=== PATIENT | male | born 1980 | race Caucasian/White ===

== ENCOUNTER 2017-03-20 21:05 | Inpatient (IN) | payer OTHER ==
[~2017-03-20] VITALS: Ht 182.9 cm; Wt 106.7 kg
[2017-03-20 22:03] LABS: HEMATOCRIT 45.4 % (38.0-50.0); MCH 31.1 PG (29.0-34.0); MCHC 32.4 G/DL (30.0-36.0); MEAN PLAT.VOLUME 11.3 uM^3 (9.0-12.4); PLATELET COUNT 174 K/uL (156-360); RBC DIS.WIDTH-CV 12.9 % (11.8-14.6); RBC DIS.WIDTH-SD 45.9 % (39-53); RED BLOOD COUNT 4.73 M/uL (4.00-5.50); WHITE BLOOD COUNT 17.1 K/uL (4.1-10.2)
[2017-03-20 22:31] LABS: ANION GAP 10 MEQ/L (2-14); CHLORIDE 99 MEQ/L (99-109); POTASSIUM 4.1 MEQ/L (3.7-5.4); SAMPLE HEMOLYSIS CHECK 0; SAMPLE ICTERIC CHECK 0; SAMPLE LIPEMIA CHECK 0; SODIUM 137 MEQ/L (136-147)
[2017-03-20 22:37] LABS: GFR ESTIMATE (CALCULATED) > 59 mL/min/; GLUCOSE 100 mg/dL (70-99); UREA NITROGEN (BUN) 13 mg/dL (9-23)
[2017-03-20 22:39] LABS: TROP-I INTERPRETATION NEGATIVE; TROPONIN-I < 0.01 ng/mL (0.0-0.30)
[2017-03-21 00:25] LABS: ALKALINE PHOSPHATASE 98 IU/L (3-129); DIRECT BILIRUBIN 0.1 mg/dL (0.0-0.3); LIPASE 8 U/L (1.0-51.0); TOTAL BILIRUBIN 0.7 MG/DL (0.0-1.0)
[2017-03-21 00:53] LABS: CK-MB 6.4 ng/mL (0.0-4.9)
[2017-03-21 01:05] LABS: CREATINE KINASE 250 IU/L (1-294); TOTAL CK 250 IU/L (1-294)
[2017-03-21 04:29] LABS: ADD MEDTOX COMMENT Y; AMPHETAMINE NEGATIVE (500 ng/mL); BARBITURATES NEGATIVE (200 ng/mL); BENZODIAZEPINES NEGATIVE (150 ng/mL); COCAINE NEGATIVE (150 ng/mL); INTERNAL CONTROLS VALID? YES; METHADONE NEGATIVE (200 ng/mL); METHAMPHETAMINE NEGATIVE (500 ng/mL); OPIATES (MORPHINE) PRESUMPTIVE POSITIVE (100 ng/mL); OXYCODONE NEGATIVE (100 ng/mL); PHENCYCLIDINE NEGATIVE (25 ng/mL); PROPOXYPHENE NEGATIVE (300 ng/mL); THC CANNABINOIDS NEGATIVE (50 ng/mL); TRICYCLIC ANTIDEPRESSANTS NEGATIVE (300 ng/mL)
[2017-03-21 06:10] VITALS: BP 167/99
[2017-03-21 07:36] LABS: Estimated Average Glucose 123 mg/dL (70-123); HEMOGLOBIN A1c (GLYCOHEMOGLOB) 5.9 % HGB (Below 5.7)
[2017-03-21 08:00] VITALS: BP 151/93
[2017-03-21 09:27] LABS: TREPONEMA ANTIBODY NEGATIVE (NEGATIVE)
[2017-03-21 09:31] LABS: HEMATOCRIT 40.4 % (38.0-50.0); MCH 30.8 PG (29.0-34.0); MCHC 31.7 G/DL (30.0-36.0); MCV 97.3 FL (86-99); MEAN PLAT.VOLUME 10.2 uM^3 (9.0-12.4); PLATELET COUNT 202 K/uL (156-360); RBC DIS.WIDTH-SD 46.2 % (39-53); RED BLOOD COUNT 4.15 M/uL (4.00-5.50); WHITE BLOOD COUNT 11.6 K/uL (4.1-10.2)
[2017-03-21 10:25] LABS: C-REACTIVE PROTEIN 33.6 MG/L (0-10)
[2017-03-21 11:09] LABS: ANION GAP 6 MEQ/L (2-14); CHLORIDE 104 MEQ/L (99-109); GFR ESTIMATE (CALCULATED) > 59 mL/min/; GLUCOSE 82 mg/dL (70-99); POTASSIUM 4.3 MEQ/L (3.7-5.4); SAMPLE HEMOLYSIS CHECK 0; SAMPLE ICTERIC CHECK 0; SAMPLE LIPEMIA CHECK 0; SODIUM 139 MEQ/L (136-147); UREA NITROGEN (BUN) 9 mg/dL (9-23)
[2017-03-21 11:21] VITALS: BP 136/89
[2017-03-21 15:57] VITALS: BP 134/90
[2017-03-21 20:22] VITALS: BP 168/75
[2017-03-22] VITALS: BP 142/96
[2017-03-22 05:15] VITALS: BP 154/92
[2017-03-22 05:20] LABS: HEMATOCRIT 39.5 % (38.0-50.0); MCH 31.9 PG (29.0-34.0); MCHC 33.2 G/DL (30.0-36.0); MCV 96.1 FL (86-99); MEAN PLAT.VOLUME 10.8 uM^3 (9.0-12.4); PLATELET COUNT 214 K/uL (156-360); RBC DIS.WIDTH-SD 45.9 % (39-53); RED BLOOD COUNT 4.11 M/uL (4.00-5.50); WHITE BLOOD COUNT 12.2 K/uL (4.1-10.2)
[2017-03-22 05:55] LABS: ANION GAP 8 MEQ/L (2-14); CHLORIDE 102 MEQ/L (99-109); GFR ESTIMATE (CALCULATED) > 59 mL/min/; POTASSIUM 3.5 MEQ/L (3.7-5.4); SAMPLE HEMOLYSIS CHECK 0; SAMPLE ICTERIC CHECK 0; SAMPLE LIPEMIA CHECK 0; SODIUM 138 MEQ/L (136-147); UREA NITROGEN (BUN) 9 mg/dL (9-23)
[2017-03-22 06:41] LABS: GLUCOSE 107 mg/dL (70-99)
[2017-03-22 08:22] VITALS: BP 139/85
[2017-03-22 10:16] LABS: HBSG INDEX 0.21
[2017-03-22 10:17] LABS: HPCA INDEX 0.15
[2017-03-22 12:37] VITALS: BP 128/84
[2017-03-22 17:59] VITALS: BP 143/81
[2017-03-22 20:27] VITALS: BP 146/100
[2017-03-23 01:01] VITALS: BP 140/99
[2017-03-23 05:53] VITALS: BP 144/89
[2017-03-23 05:54] LABS: HEMATOCRIT 41.2 % (38.0-50.0); MCH 31.8 PG (29.0-34.0); MCV 96.3 FL (86-99); MEAN PLAT.VOLUME 10.7 uM^3 (9.0-12.4); PLATELET COUNT 206 K/uL (156-360); RBC DIS.WIDTH-SD 46.4 % (39-53); RED BLOOD COUNT 4.28 M/uL (4.00-5.50); WHITE BLOOD COUNT 11.2 K/uL (4.1-10.2)
[2017-03-23 06:12] LABS: ANION GAP 9 MEQ/L (2-14); CHLORIDE 102 MEQ/L (99-109); GFR ESTIMATE (CALCULATED) > 59 mL/min/; GLUCOSE 82 mg/dL (70-99); SAMPLE HEMOLYSIS CHECK 0; SAMPLE ICTERIC CHECK 0; SAMPLE LIPEMIA CHECK 0; SODIUM 141 MEQ/L (136-147); UREA NITROGEN (BUN) 8 mg/dL (9-23)
[2017-03-23 09:00] VITALS: BP 140/91
[2017-03-23 12:00] VITALS: BP 153/62
[2017-03-23 12:13] LABS: APPEARANCE CLEAR/COLORLESS; CSF EOSINOPHILS 0 % (0-25); MONO RAW COUNT 1; MONONUCLEAR WBC'S 50 % (50-90); POLY RAW COUNT 1; POLYNUCLEAR WBC'S 50 % (0-3); RED CELL AREA COUNTED 18; RED CELL COUNT 0 /MM^3 (0-1); RED CELL DILUTION 1; WBC AREA COUNTED 18; WBC DILUTION 1; WHITE CELL COUNT 2 /MM^3 (0-5); WHITE CELL RAW COUNT 3
[2017-03-23 15:00] VITALS: BP 131/91
[2017-03-23 21:42] VITALS: BP 142/82
[2017-03-24 00:18] VITALS: BP 131/90
[2017-03-24 04:59] VITALS: BP 138/96
[2017-03-24 05:18] LABS: HEMATOCRIT 42.7 % (38.0-50.0); MCH 32.7 PG (29.0-34.0); MCHC 34.2 G/DL (30.0-36.0); MCV 95.7 FL (86-99); MEAN PLAT.VOLUME 10.7 uM^3 (9.0-12.4); PLATELET COUNT 219 K/uL (156-360); RBC DIS.WIDTH-CV 12.6 % (11.8-14.6); RBC DIS.WIDTH-SD 44.5 % (39-53); RED BLOOD COUNT 4.46 M/uL (4.00-5.50); WHITE BLOOD COUNT 13.6 K/uL (4.1-10.2)
[2017-03-24 19:30] VITALS: BP 133/78
[2017-03-24 23:00] VITALS: BP 136/98
[2017-03-25 04:49] VITALS: BP 137/94
[2017-03-25 05:35] LABS: HEMATOCRIT 41.7 % (38.0-50.0); MCH 31.9 PG (29.0-34.0); MCHC 33.1 G/DL (30.0-36.0); MCV 96.3 FL (86-99); MEAN PLAT.VOLUME 10.9 uM^3 (9.0-12.4); PLATELET COUNT 198 K/uL (156-360); RBC DIS.WIDTH-CV 12.8 % (11.8-14.6); RBC DIS.WIDTH-SD 45.2 % (39-53); RED BLOOD COUNT 4.33 M/uL (4.00-5.50); WHITE BLOOD COUNT 14.1 K/uL (4.1-10.2)
[2017-03-25 08:22] VITALS: BP 149/97
[2017-03-25 16:00] VITALS: BP 120/83
[2017-03-26 00:06] VITALS: BP 129/83
[2017-03-26 02:54] VITALS: BP 138/85
[2017-03-26 05:46] LABS: HEMATOCRIT 43.5 % (38.0-50.0); MCHC 32.9 G/DL (30.0-36.0); MCV 97.3 FL (86-99); MEAN PLAT.VOLUME 10.7 uM^3 (9.0-12.4); PLATELET COUNT 184 K/uL (156-360); RBC DIS.WIDTH-CV 13.1 % (11.8-14.6); RBC DIS.WIDTH-SD 46.8 % (39-53); RED BLOOD COUNT 4.47 M/uL (4.00-5.50); WHITE BLOOD COUNT 13.3 K/uL (4.1-10.2)
[2017-03-26 07:20] VITALS: BP 137/87
[2017-03-26] MEDS ORDERED: HYDROCODON-ACE1 EAC7 PO (08:28)
[2017-03-26] MEDS ORDERED: CYCLOBENZAPRINE10 MG PO (08:28)
[2017-03-26] MEDS ORDERED: NICOTINE PATCH1 EAC2 TD (08:49)
[2017-03-26 11:28] VITALS: BP 140/84
[2017-03-26] MEDS ORDERED: ERGOCALCIF50000 UNIT PO ×2 (11:48→16:11)
[2017-03-26 15:04] VITALS: BP 137/83
[2017-03-26] MEDS ORDERED: SENNA-DOCUSATE1 EAC1 PO (16:04)
[2017-03-26] MEDS ORDERED: DIAZEPAM10 MG PO (16:06)
[2017-03-26] MEDS ORDERED: ACETAMINOPHEN325 M1 PO (16:07)
[2017-03-26] MEDS ORDERED: B-121000 MC2 PO (16:10)
[2017-03-26 20:07] LABS: IgG Index, CSF 0.47 index (<0.66); Synthesis Rate IgG, CSF -2.4 mg/24 h (-9.9-3.3)
== END 2017-03-26 15:20 | DRG 519 ==
LOC: EME 21:05 → EDOF 03-21 03:57 → 4EAST 03-21 03:57 → ENRESERV 03-21 03:59 → 4EAST 03-21 05:56
PROVIDERS: Hospitalist; Internal Medicine Infectious Disease; Physician Assistant; Psychiatry & Neurology Clinical Neurophysiology
PROC: 009U3ZX Drainage of Spinal Canal, Percutaneous Approach, Diagnostic (ICD-10-PCS; principal; 2017-03-23)
PROC: 00NW0ZZ Release Cervical Spinal Cord, Open Approach (ICD-10-PCS; 2017-03-23)
DX: M50.01 Cervical disc disorder with myelopathy, high cervical region (principal); M48.02 Spinal stenosis, cervical region; R65.10 Systemic inflammatory response syndrome (SIRS) of non-infectious origin without acute organ dysfunction; F95.2 Tourette's disorder; E55.9 Vitamin D deficiency, unspecified; J98.11 Atelectasis; E87.6 Hypokalemia; F40.240 Claustrophobia; B95.61 Methicillin susceptible Staphylococcus aureus infection as the cause of diseases classified elsewhere; S80.922A Unspecified superficial injury of left lower leg, initial encounter; R29.6 Repeated falls; F17.210 Nicotine dependence, cigarettes, uncomplicated; Z91.81 History of falling; Z82.0 Family history of epilepsy and other diseases of the nervous system
CPT/HCPCS: 62270; 70450; 70551; 71010; 71020; 72020; 72141; 72146; 72148; 74176; 76000; 77003; 80048; 80076; 82040 90; 82042 90; 82175 90; 82300 90; 82306; 82550; 82553; 82607; 82746; 82784 90; 82945; 83036; 83655 90; 83690; 83825 90; 83873 90; 83916 90; 84157; 84443; 84484; 84999; 85027; 85651; 86140; 86617 90; 86618 90; 86780; 86803; 87040; 87070; 87075; 87077; 87147; 87186; 87205; 87340; 89051; 93005; 94799; 97530 GP; 99281; 99285; J0131; J0690; J0696; J1170; J1644; J2060; J2250; J2930; J3010; J3370; J3480; J7030; J7050

== ENCOUNTER 2017-03-26 15:07 | Inpatient (IN) | payer OTHER ==
[~2017-03-26] VITALS: Ht 180.3 cm; Wt 106.3 kg
[~2017-03-26 15:07] MED LIST: CYCLOBENZAPRINE10 MG PO; ERGOCALCIF50000 UNIT PO; HYDROCODON-ACE1 EAC7 PO; NICOTINE PATCH1 EAC2 TD
[2017-03-26 16:00] VITALS: BP 156/95
[2017-03-26] MEDS ORDERED: SENNA-DOCUSATE1 EAC1 PO (16:04)
[2017-03-26] MEDS ORDERED: DIAZEPAM10 MG PO (16:06)
[2017-03-26] MEDS ORDERED: ACETAMINOPHEN325 M1 PO (16:07)
[2017-03-26] MEDS ORDERED: B-121000 MC2 PO (16:10)
[2017-03-26] MEDS ORDERED: ERGOCALCIF50000 UNIT PO (16:11)
[2017-03-26 23:50] VITALS: BP 143/90
[2017-03-27 05:01] VITALS: BP 146/92
[2017-03-27 15:27] VITALS: BP 117/74
[2017-03-28 05:12] VITALS: BP 144/83
[2017-03-28 05:49] LABS: EOSINOPHIL (%) 1.5 % (0-5); EOSINOPHIL COUNT 0.2 K/uL (0-0.3); IMMATURE GRANULOCYTE (%) 0.7 % (0.0-0.7); IMMATURE GRANULOCYTE COUNT 0.1 K/uL; INSTRUMENT ABS NEUTROPHIL CT 8.4 K/uL; LYMPHOCYTE COUNT 2.1 K/uL (1.0-2.8); MCH 32.4 PG (29.0-34.0); MCHC 33.3 G/DL (30.0-36.0); MCV 97.5 FL (86-99); MEAN PLAT.VOLUME 10.7 uM^3 (9.0-12.4); MONOCYTE (%) 10.1 % (3-12); MONOCYTE COUNT 1.2 K/uL (0-0.8); NEUTROPHIL (%) 69.6 % (45-76); NEUTROPHIL COUNT 8.4 K/uL (1.8-6.4); PLATELET COUNT 204 K/uL (156-360); RBC DIS.WIDTH-CV 12.9 % (11.8-14.6); RBC DIS.WIDTH-SD 46.4 % (39-53); RED BLOOD COUNT 4.72 M/uL (4.00-5.50); WHITE BLOOD COUNT 12.1 K/uL (4.1-10.2)
[2017-03-28 15:47] VITALS: BP 131/73
[2017-03-29 05:40] VITALS: BP 104/67
[2017-03-29 15:31] VITALS: BP 116/74
[2017-03-30 04:50] VITALS: BP 135/69
[2017-03-30 15:39] VITALS: BP 113/67
[2017-03-31 06:57] LABS: BASOPHIL COUNT 0.1 K/uL (0-0.1); EOSINOPHIL (%) 2.2 % (0-5); EOSINOPHIL COUNT 0.2 K/uL (0-0.3); HEMATOCRIT 43.9 % (38.0-50.0); IMMATURE GRANULOCYTE (%) 0.5 % (0.0-0.7); IMMATURE GRANULOCYTE COUNT 0.1 K/uL; INSTRUMENT ABS NEUTROPHIL CT 6.4 K/uL; LYMPHOCYTE COUNT 2.2 K/uL (1.0-2.8); MCHC 32.6 G/DL (30.0-36.0); MCV 98.2 FL (86-99); MEAN PLAT.VOLUME 10.9 uM^3 (9.0-12.4); MONOCYTE (%) 9.8 % (3-12); NEUTROPHIL (%) 65.2 % (45-76); NEUTROPHIL COUNT 6.4 K/uL (1.8-6.4); PLATELET COUNT 194 K/uL (156-360); RBC DIS.WIDTH-SD 46.8 % (39-53); RED BLOOD COUNT 4.47 M/uL (4.00-5.50); WHITE BLOOD COUNT 9.9 K/uL (4.1-10.2)
[2017-03-31 15:30] VITALS: BP 117/73
[2017-04-01 06:01] VITALS: BP 120/73
[2017-04-01 14:58] VITALS: BP 120/69
[2017-04-02 04:25] VITALS: BP 119/67
[2017-04-02 15:05] VITALS: BP 111/69
[2017-04-03 05:26] VITALS: BP 118/83
[2017-04-03 15:33] VITALS: BP 114/69
[2017-04-04 05:58] VITALS: BP 121/77
[2017-04-04 15:12] VITALS: BP 121/74
[2017-04-04 19:55] VITALS: BP 136/74
[2017-04-05 00:13] VITALS: BP 120/67
[2017-04-05 04:53] LABS: HEMATOCRIT 41.3 % (38.0-50.0); MCH 30.7 PG (29.0-34.0); MCHC 32.4 G/DL (30.0-36.0); MCV 94.7 FL (86-99); MEAN PLAT.VOLUME 10.7 uM^3 (9.0-12.4); PLATELET COUNT 188 K/uL (156-360); RBC DIS.WIDTH-CV 12.4 % (11.8-14.6); RBC DIS.WIDTH-SD 43.3 % (39-53); RED BLOOD COUNT 4.36 M/uL (4.00-5.50); WHITE BLOOD COUNT 8.4 K/uL (4.1-10.2)
[2017-04-05 05:00] VITALS: BP 119/74
[2017-04-05 05:09] LABS: CHLORIDE 103 mEq/L (99-109); POTASSIUM 4.2 mEq/L (3.7-5.4); SODIUM 138 mEq/L (136-147)
[2017-04-05 05:11] LABS: GLUCOSE 92 mg/dL (70-99)
[2017-04-05 05:12] LABS: ANION GAP 7 MEQ/L (2-14)
[2017-04-05 05:13] LABS: TOTAL BILIRUBIN 0.4 mg/dL (0.0-1.0)
[2017-04-05 05:15] LABS: ALKALINE PHOSPHATASE 90 IU/L (3-129); GFR ESTIMATE (CALCULATED) > 59 mL/min/
[2017-04-05 05:16] LABS: UREA NITROGEN (BUN) 12 mg/dL (9-23)
[2017-04-05 07:40] VITALS: BP 132/82
[2017-04-05 15:29] VITALS: BP 117/74
[2017-04-05] MEDS ORDERED: HYDROCODON-ACE1 EAC7 PO (15:43)
[2017-04-05] MEDS ORDERED: CYCLOBENZAPRINE10 MG PO (15:43)
[2017-04-05] MEDS ORDERED: NICOTINE PATCH1 EAC2 TD (15:43)
[2017-04-06 05:29] VITALS: BP 102/67
[2017-04-06 07:20] VITALS: BP 131/82
== END 2017-04-06 14:15 | DRG 946 ==
LOC: ENRESERV 15:07 → 3WEST 15:07 → ENPENDDIS 04-06 → 3WEST 04-06 14:15
PROVIDERS: Physical Medicine & Rehabilitation Pain Medicine; Psychiatry & Neurology Neurology
PROC: F07M0ZZ Range of Motion and Joint Mobility Treatment of Musculoskeletal System - Whole Body (ICD-10-PCS; principal; 2017-03-26)
DX: R53.1 Weakness (principal); R27.0 Ataxia, unspecified; M54.2 Cervicalgia; D64.9 Anemia, unspecified; F95.2 Tourette's disorder; I10 Essential (primary) hypertension; D72.829 Elevated white blood cell count, unspecified; E53.8 Deficiency of other specified B group vitamins; E55.9 Vitamin D deficiency, unspecified; R20.0 Anesthesia of skin; R51 Headache; F17.210 Nicotine dependence, cigarettes, uncomplicated; Z68.32 Body mass index [BMI] 32.0-32.9, adult; Z82.0 Family history of epilepsy and other diseases of the nervous system
CPT/HCPCS: 80053; 85025; 85027; 97110 GO; 97112 GP; 97530 GP

== ENCOUNTER 2017-08-04 15:56 | Inpatient (IN) | payer OTHER ==
[~2017-08-04] VITALS: Ht 182.9 cm; Wt 93.3 kg
[~2017-08-04 15:56] MED LIST changes: +ACETAMINOPHEN325 M1 PO; +B-121000 MC2 PO; +DIAZEPAM10 MG PO; +SENNA-DOCUSATE1 EAC1 PO
[2017-08-04 16:57] LABS: BASOPHIL (%) 0.3 % (0-1); BASOPHIL COUNT 0.1 K/uL (0-0.1); EOSINOPHIL (%) 0.1 % (0-5); HEMATOCRIT 49.7 % (38.0-50.0); HEMOGLOBIN 17.3 G/DL (12.5-16.6); LYMPHOCYTE (%) 7.5 % (15-42); LYMPHOCYTE COUNT 2.6 K/uL (1.0-2.8); MCH 31.1 PG (29.0-34.0); MCHC 34.8 G/DL (30.0-36.0); MCV 89.2 FL (86-99); MONOCYTE (%) 3.9 % (3-12); MONOCYTE COUNT 1.4 K/uL (0-0.8); NEUTROPHIL (%) 87.2 % (45-76); NEUTROPHIL COUNT 30.1 K/uL (1.8-6.4); PLATELET COUNT 358 K/uL (156-360); RBC DIS.WIDTH-CV 12.1 % (11.8-14.6); RBC DIS.WIDTH-SD 39.7 % (39-53); RED BLOOD COUNT 5.57 M/uL (4.00-5.50)
[2017-08-04 16:59] LABS: WHITE BLOOD COUNT 34.5 K/uL (4.1-10.2)
[2017-08-04 17:08] LABS: ALBUMIN 4.6 G/DL (3.2-4.8); DIRECT BILIRUBIN 0.1 mg/dL (0.0-0.3); TOTAL BILIRUBIN 0.7 MG/DL (0.0-1.0)
[2017-08-04 17:22] LABS: ALKALINE PHOSPHATASE 118 IU/L (3-129); ALT (GPT) 19 IU/L (3-49); AST (GOT) 19 IU/L (2-34); LIPASE 506 U/L (1.0-51.0); SERUM ETHYL ALCOHOL < 10 mg/dL; TOTAL PROTEIN 7.8 G/DL (6.4-8.3)
[2017-08-04 18:00] LABS: HEMATOCRIT 46.8 % (38.0-50.0); HEMOGLOBIN 16.5 G/DL (12.5-16.6); MCH 31.4 PG (29.0-34.0); MCHC 35.3 G/DL (30.0-36.0); MCV 89.1 FL (86-99); PLATELET COUNT 305 K/uL (156-360); RBC DIS.WIDTH-CV 12.1 % (11.8-14.6); RBC DIS.WIDTH-SD 39.8 % (39-53); RED BLOOD COUNT 5.25 M/uL (4.00-5.50); WHITE BLOOD COUNT 28.9 K/uL (4.1-10.2)
[2017-08-04 18:21] LABS: TROP-I INTERPRETATION NEGATIVE; TROPONIN-I 0.19 ng/mL (0.0-0.30)
[2017-08-04] MEDS ORDERED: WELLBUTRIN SR150 MG PO (20:23)
[2017-08-04] MEDS ORDERED: FLUPHENAZINE H2.5 MG PO (20:23)
[2017-08-04] MEDS ORDERED: METOPROLOL SUCC50 MG PO (20:23)
[2017-08-04] MEDS ORDERED: SUBOXONE 8 MG-1 EAC2 SL (20:23)
[2017-08-04 21:15] LABS: APPEARANCE CLEAR ((CLEAR)); BILIRUBIN NEGATIVE; BLOOD LARGE; COLOR STRAW ((YELLOW)); GLUCOSE (STRIP) NEGATIVE; KETONES 20; LEUKOCYTES NEGATIVE; NITRITE NEGATIVE; PROTEIN (STRIP) NEGATIVE; UROBILINOGEN 0.2 MG/DL (0.2-1.0)
[2017-08-04 21:21] LABS: BACTERIA NONE SEEN /HPF; EPITHELIAL CELLS NONE SEEN /HPF; MUCUS TRACE /LPF; RED BLOOD CELLS 30-40 /HPF (0-5); UCUL ADDED? NO; WHITE BLOOD CELLS 0-5 /HPF (0-5)
[2017-08-04 21:24] LABS: AMPHETAMINE NEGATIVE (500 ng/mL); BARBITURATES NEGATIVE (200 ng/mL); BENZODIAZEPINES PRESUMPTIVE POSITIVE (150 ng/mL); BUPRENORPHINE PRESUMPTIVE POSITIVE (10 ng/mL); COCAINE NEGATIVE (150 ng/mL); METHADONE NEGATIVE (200 ng/mL); METHAMPHETAMINE NEGATIVE (500 ng/mL); OPIATES (MORPHINE) NEGATIVE (100 ng/mL); OXYCODONE NEGATIVE (100 ng/mL); PHENCYCLIDINE NEGATIVE (25 ng/mL); PROPOXYPHENE NEGATIVE (300 ng/mL); THC CANNABINOIDS NEGATIVE (50 ng/mL); TRICYCLIC ANTIDEPRESSANTS NEGATIVE (300 ng/mL)
[2017-08-04 21:42] LABS: BASE EXCESS -2.4 mEq/L (-3 to +3); BICARBONATE 19.7 mEq/L (22-26); CARBOXY HGB 2.3 % (0-5); METHEMOGLOBIN 1.4 % (0-1.5); PCO2 27 mm Hg (35-45); PO2 67 mm Hg (80-100); pH 7.47 (7.35-7.45)
[2017-08-04 21:43] LABS: COMMENTS - BLOOD GASES C+A+; DEVICE ROOM AIR; SITE RB
[2017-08-04 22:04] LABS: CHLORIDE 109 MEQ/L (99-109); SODIUM 141 MEQ/L (136-147)
[2017-08-04 22:06] LABS: BENZODIAZEPINES, URINE SCREEN Negative (200 ng/mL)
[2017-08-04 22:10] LABS: CREATININE 0.9 MG/DL (0.6-1.3); GFR ESTIMATE (CALCULATED) > 59 mL/min/ (58.99-99999); GLUCOSE 99 mg/dL (70-99); UREA NITROGEN (BUN) 15 mg/dL (9-23)
[2017-08-04 23:54] LABS: INTER. NORMALIZED RATIO 1.2
[2017-08-04 23:56] LABS: PTT 32.4 SEC (25-37)
[2017-08-05] VITALS (21 sets, daily range): BP systolic 121–152; BP diastolic 79–104
[2017-08-05 00:08] LABS: TROP-I INTERPRETATION POSITIVE
[2017-08-05 00:11] LABS: TROPONIN-I 0.78 ng/mL (0.0-0.30)
[2017-08-05 00:16] LABS: ALBUMIN 3.9 G/DL (3.2-4.8); ALKALINE PHOSPHATASE 96 IU/L (3-129); ALT (GPT) 20 IU/L (3-49); DIRECT BILIRUBIN 0.2 mg/dL (0.0-0.3); MAGNESIUM 1.5 mg/dl (1.3-2.7); PHOSPHORUS 2.1 mg/dL (2.5-4.9); TOTAL BILIRUBIN 0.8 MG/DL (0.0-1.0); TOTAL PROTEIN 6.8 G/DL (6.4-8.3)
[2017-08-05 00:19] LABS: AST (GOT) 28 IU/L (2-34)
[2017-08-05 12:59] LABS: CREATININE 0.7 MG/DL (0.6-1.3); GFR ESTIMATE (CALCULATED) > 59 mL/min/ (58.99-99999); UREA NITROGEN (BUN) 12 mg/dL (9-23)
[2017-08-05 15:38] LABS: BASE EXCESS -2.7 mEq/L (-3 to +3); BICARBONATE 20.8 mEq/L (22-26); CARBOXY HGB 2.6 % (0-5); METHEMOGLOBIN 1.6 % (0-1.5); PCO2 32 mm Hg (35-45); PO2 67 mm Hg (80-100); pH 7.42 (7.35-7.45)
[2017-08-05 15:39] LABS: COMMENTS - BLOOD GASES NA C+; DEVICE NC; O2 FLOW 2 L/MIN; SITE RR; TOTAL RESP RATE 14 resp/min
[2017-08-06] VITALS (16 sets, daily range): BP systolic 121–157; BP diastolic 68–110
[2017-08-06 07:37] LABS: BASOPHIL (%) 0.3 % (0-1); EOSINOPHIL (%) 0.1 % (0-5); HEMATOCRIT 37.9 % (38.0-50.0); IMMATURE GRANULOCYTE (%) 0.6 % (0.0-0.7); LYMPHOCYTE COUNT 1.8 K/uL (1.0-2.8); MCH 30.5 PG (29.0-34.0); MCHC 34.3 G/DL (30.0-36.0); MONOCYTE (%) 7.9 % (3-12); MONOCYTE COUNT 1.2 K/uL (0-0.8); NEUTROPHIL (%) 79.1 % (45-76); NEUTROPHIL COUNT 11.7 K/uL (1.8-6.4); RBC DIS.WIDTH-CV 12.2 % (11.8-14.6); RED BLOOD COUNT 4.26 M/uL (4.00-5.50); WHITE BLOOD COUNT 14.8 K/uL (4.1-10.2)
[2017-08-06 07:44] LABS: TROP-I INTERPRETATION NEGATIVE
[2017-08-06 07:54] LABS: PLAT.SUFFICIENCY ADEQUATE
[2017-08-06 07:58] LABS: PLATELET COUNT 178 K/uL (156-360)
[2017-08-06 08:04] LABS: CHLORIDE 107 MEQ/L (99-109); CREATININE 0.7 MG/DL (0.6-1.3); GFR ESTIMATE (CALCULATED) > 59 mL/min/ (58.99-99999); GLUCOSE 80 mg/dL (70-99); MAGNESIUM 1.8 mg/dl (1.3-2.7); PHOSPHORUS 2.4 mg/dL (2.5-4.9); POTASSIUM 3.6 MEQ/L (3.7-5.4); SODIUM 138 MEQ/L (136-147); TOTAL CK 694 IU/L (1-294); UREA NITROGEN (BUN) 9 mg/dL (9-23)
[2017-08-06 08:05] LABS: CREATINE KINASE 694 IU/L (1-294)
[2017-08-06 08:09] LABS: CK-MB 3.9 ng/mL (0.0-4.9); CKMB RELATIVE INDEX 0.6 (0.0-3.9)
[2017-08-06 08:55] LABS: LIPASE 115 U/L (1.0-51.0)
[2017-08-07] VITALS (11 sets, daily range): BP systolic 124–163; BP diastolic 84–112
[2017-08-07 12:45] LABS: BASOPHIL (%) 0.3 % (0-1); EOSINOPHIL (%) 0.2 % (0-5); HEMATOCRIT 38.9 % (38.0-50.0); IMMATURE GRANULOCYTE (%) 0.9 % (0.0-0.7); LYMPHOCYTE (%) 11.1 % (15-42); LYMPHOCYTE COUNT 1.2 K/uL (1.0-2.8); MCHC 33.4 G/DL (30.0-36.0); MCV 89.8 FL (86-99); MONOCYTE (%) 8.6 % (3-12); NEUTROPHIL (%) 78.9 % (45-76); NEUTROPHIL COUNT 8.9 K/uL (1.8-6.4); PLATELET COUNT 174 K/uL (156-360); RBC DIS.WIDTH-CV 12.2 % (11.8-14.6); RBC DIS.WIDTH-SD 40.2 % (39-53); RED BLOOD COUNT 4.33 M/uL (4.00-5.50); WHITE BLOOD COUNT 11.2 K/uL (4.1-10.2)
[2017-08-07 13:21] LABS: CHLORIDE 105 MEQ/L (99-109); CREATININE 0.7 MG/DL (0.6-1.3); GFR ESTIMATE (CALCULATED) > 59 mL/min/ (58.99-99999); GLUCOSE 111 mg/dL (70-99); POTASSIUM 3.6 MEQ/L (3.7-5.4); SODIUM 135 MEQ/L (136-147); UREA NITROGEN (BUN) 4 mg/dL (9-23)
[2017-08-07] MEDS ORDERED: AUGMENTIN875 MG PO (15:21)
[2017-08-08] VITALS (9 sets, daily range): BP systolic 0–165; BP diastolic 0–108
[2017-08-08] MEDS ORDERED: TOPROL XL25 MG PO (11:14)
[2017-08-08] MEDS ORDERED: LISINOPRIL10 MG PO (11:14)
== END 2017-08-08 14:36 | DRG 82 ==
LOC: EME 15:56 → EDOF 22:51 → 4WEST 22:51 → ENRESERV 23:11 → CANRESERV 23:11 → EDOF 08-05 02:31 → ENRESERV 08-05 02:33 → 4WEST 08-05 03:31 → ENRESERV 08-06 12:08 → CANRESERV 08-06 23:48 → ENRESERV 08-07 09:17 → 4WEST 08-08 14:36
PROVIDERS: Emergency Medicine; Hospitalist; Internal Medicine; Internal Medicine Critical Care Medicine; Obstetrics & Gynecology
DX: S06.6X9A Traumatic subarachnoid hemorrhage with loss of consciousness of unspecified duration, initial encounter (principal); J69.0 Pneumonitis due to inhalation of food and vomit; I10 Essential (primary) hypertension; F11.23 Opioid dependence with withdrawal; F95.2 Tourette's disorder; F10.239 Alcohol dependence with withdrawal, unspecified; G95.9 Disease of spinal cord, unspecified; E87.2 Acidosis; F17.200 Nicotine dependence, unspecified, uncomplicated; R32 Unspecified urinary incontinence; Z87.442 Personal history of urinary calculi; Z82.0 Family history of epilepsy and other diseases of the nervous system
CPT/HCPCS: 36600; 70450; 70496; 71045; 71275; 74177; 80048; 80076; 80202; 81003; 82140; 82550; 82553; 82565; 82803; 82948; 83605; 83690; 83735; 83785 90; 84100; 84484; 84520; 84999; 85025; 85027; 85610; 85730; 87040; 87641; 93005; 94799; 95819; 97530 GO; 99281; 99285; G0480; J0295; J1200; J1630; J2060; J2250; J2270; J2543; J3010; J3370; J3475; J7030; J7040; J7050; J7120; S0028

== ENCOUNTER 2017-08-08 14:57 | Inpatient (IN) | payer OTHER ==
[~2017-08-08] VITALS: Ht 180.3 cm; Wt 94.4 kg
[~2017-08-08 14:57] MED LIST changes: +AUGMENTIN875 MG PO; +FLUPHENAZINE H2.5 MG PO; +LISINOPRIL10 MG PO; +METOPROLOL SUCC50 MG PO; +SUBOXONE 8 MG-1 EAC2 SL; +TOPROL XL25 MG PO; +WELLBUTRIN SR150 MG PO
[2017-08-08 15:36] VITALS: BP 145/85
[2017-08-08 15:47] VITALS: BP 145/85
[2017-08-08 23:57] VITALS: BP 160/98
[2017-08-09 05:06] VITALS: BP 139/92
[2017-08-09 05:55] LABS: HEMOGLOBIN 13.1 G/DL (12.5-16.6); MCH 30.1 PG (29.0-34.0); MCHC 33.6 G/DL (30.0-36.0); MCV 89.7 FL (86-99); PLATELET COUNT 184 K/uL (156-360); RBC DIS.WIDTH-SD 39.5 % (39-53); RED BLOOD COUNT 4.35 M/uL (4.00-5.50)
[2017-08-09 06:24] LABS: ALBUMIN 3.8 G/DL (3.2-4.8); ALKALINE PHOSPHATASE 70 IU/L (3-129); ALT (GPT) 17 IU/L (3-49); CHLORIDE 101 MEQ/L (99-109); CREATININE 0.7 MG/DL (0.6-1.3); GFR ESTIMATE (CALCULATED) > 59 mL/min/ (58.99-99999); GLUCOSE 88 mg/dL (70-99); POTASSIUM 3.3 MEQ/L (3.7-5.4); SODIUM 140 MEQ/L (136-147); UREA NITROGEN (BUN) 5 mg/dL (9-23)
[2017-08-09 06:27] LABS: AST (GOT) 15 IU/L (2-34); TOTAL BILIRUBIN 0.6 MG/DL (0.0-1.0)
[2017-08-09 15:31] VITALS: BP 145/89
[2017-08-10 04:46] VITALS: BP 164/84
[2017-08-10 15:16] VITALS: BP 152/92
[2017-08-11 05:36] VITALS: BP 192/110
[2017-08-11 06:16] VITALS: BP 170/102
[2017-08-11 09:07] VITALS: BP 161/112
[2017-08-11 10:56] VITALS: BP 150/100
[2017-08-11 12:55] VITALS: BP 150/92
[2017-08-11] MEDS ORDERED: NICOTINE PATCH1 EAC2 TD (13:28)
[2017-08-11] MEDS ORDERED: AUGMENTIN875 MG PO (13:28)
[2017-08-11] MEDS ORDERED: TOPROL XL25 MG PO (13:28)
[2017-08-11 14:22] LABS: CHLORIDE 101 MEQ/L (99-109); CREATININE 0.9 MG/DL (0.6-1.3); GFR ESTIMATE (CALCULATED) > 59 mL/min/ (58.99-99999); SODIUM 139 MEQ/L (136-147); UREA NITROGEN (BUN) 16 mg/dL (9-23)
[2017-08-11 14:26] LABS: GLUCOSE 119 mg/dL (70-99)
== END 2017-08-11 14:42 | DRG 91 ==
LOC: 3WEST 14:57
PROVIDERS: Physical Medicine & Rehabilitation Pain Medicine
PROC: F07M0ZZ Range of Motion and Joint Mobility Treatment of Musculoskeletal System - Whole Body (ICD-10-PCS; principal; 2017-08-08)
DX: S06.5X9S Traumatic subdural hemorrhage with loss of consciousness of unspecified duration, sequela (principal); R26.9 Unspecified abnormalities of gait and mobility; E87.6 Hypokalemia; F17.210 Nicotine dependence, cigarettes, uncomplicated; M48.02 Spinal stenosis, cervical region; R51 Headache; F11.90 Opioid use, unspecified, uncomplicated; E87.1 Hypo-osmolality and hyponatremia; F95.2 Tourette's disorder; I10 Essential (primary) hypertension; F11.20 Opioid dependence, uncomplicated; J69.0 Pneumonitis due to inhalation of food and vomit; E83.51 Hypocalcemia; F41.0 Panic disorder [episodic paroxysmal anxiety]; Z82.0 Family history of epilepsy and other diseases of the nervous system
CPT/HCPCS: 80048; 80053; 85027; 92523 GN; 97110 GO; 97530 GP